=== PATIENT | male | born 1990 | race Hispanic/Latino ===

== ENCOUNTER 2017-11-03 00:20 | Inpatient (IN) | payer MEDICAID ==
[2017-11-03] MEDS ORDERED: Albuterol-Ipratrop 3 mg / 0.5 (3 ml) UD IH STA ×2 (00:36)
--- NOTE | 2017-11-03 00:42 | ED PDOC ---
Arrival/HPI - General Chief Complaint: Substance Abuse Time Seen by Provider: 11/03/17 00:21 Historian: Patient, EMS, Police - Critical Care Critical Care Minutes: 45 minutes - History of Present Illness Narrative History of Present Illness (Text): 11/03/17 00:35 A 27 year old male, whose past medical history includes PCP abuse, presents to the emergency department brought in by EMS and [facility] for overdose. According to EMS reports, patient was adminstered narcan prior to arrival. Upon arrival, Emergency department assesment found patient was hypoxic. Patient was awake and alert. Patient denies any fever, chills, chest pain, shortness of breath, nausea, vomiting, diarrhea, urinary symptoms, back pain, neck pain, headache, dizziness, or any other complaints. No PMD Time/Duration: Prior to Arrival Symptom Onset: Gradual Symptom Course: Unchanged Context: Home Past Medical History - Provider Review Nursing Documentation Reviewed: Yes - Infectious Disease Hx of Infectious Diseases: None - Tetanus Immunization Tetanus Immunization: Unknown - Past Medical History Past Medical History: No Previous - Psychiatric Hx Substance Use: Yes (pcp) - Past Surgical History Past Surgical History: No Previous - Anesthesia Hx Anesthesia: Yes - Suicidal Assessment Feels Threatened In Home Enviroment: No Family/Social History - Physician Review Nursing Documentation Reviewed: Yes Family/Social History: Unknown Family HX Smoking Status: Light Smoker < 10 Cigarettes Daily Hx Alcohol Use: Yes Hx Substance Use: Yes (pcp) Hx Substance Use Treatment: No Allergies/Home Meds Allergies/Adverse Reactions: Allergies No Known Allergies Allergy (Verified 11/03/17 00:23) Home Medications: Home Meds Medication Instructions Recorded Confirmed No Known Home Med 11/03/17 11/03/17 Review of Systems - Physician Review All systems were reviewed & negative as marked: Yes - Review of Systems Constitutional: absent: Fevers, Night Sweats Eyes: Other (+has difficulty seeing ) ENT: Normal Respiratory: absent: SOB Cardiovascular: Normal. absent: Chest Pain Gastrointestinal: absent: Diarrhea, Nausea, Vomiting Genitourinary Male: absent: Urinary Output Changes Musculoskeletal: absent: Back Pain, Neck Pain Skin: Normal Neurological: absent: Headache, Dizziness Physical Exam Vital Signs Temp Pulse Resp BP Pulse Ox 11/03/17 03:44 97 H 20 120/82 100 11/03/17 03:02 83 11/03/17 02:43 84 22 117/80 100 08/04/18 02:20 78 22 124/100 H 100 11/03/17 00:30 97.7 F 89 24 115/70 94 L 11/03/17 00:29 97.7 F 94 H 22 115/70 92 L Temperature: Afebrile Blood Pressure: Hypertensive Pulse: Regular Respiratory Rate: Normal Appearance: Positive for: Well-Appearing, Non-Toxic, Comfortable Pain Distress: None Mental Status: Positive for: Alert and Oriented X 3 - Systems Exam Head: Present: Atraumatic, Normocephalic Pupils: Present: PERRL Extroacular Muscles: Present: EOMI Conjunctiva: Present: Normal Mouth: Present: Moist Mucous Membranes Neck: Present: Normal Range of Motion Respiratory/Chest: Present: Respiratory Distress (coarse bilateral breath sounds ), Other. No: Clear to Auscultation, Good Air Exchange, Accessory Muscle Use Cardiovascular: Present: Regular Rate and Rhythm, Normal S1, S2. No: Murmurs Abdomen: No: Tenderness, Distention, Peritoneal Signs Back: Present: Normal Inspection Upper Extremity: Present: Normal Inspection. No: Cyanosis, Edema Lower Extremity: Present: Normal Inspection. No: Edema Neurological: Present: GCS=15, CN II-XII Intact, Speech Normal Skin: Present: Warm, Dry, Normal Color. No: Rashes Psychiatric: Present: Alert, Oriented x 3, Normal Insight, Normal Concentration Medical Decision Making ED Course and Treatment: 11/03/17 00:40 Impression: A 27 year old male presenting to the Emergency department brought in by EMS and [facility] for overdose. Plan: -- Venous Blood Gas -- Head Ct w/o contrast -- EKG -- Labs -- Chest X-ray -- Duoneb -- Urinalysis -- Reassess and disposition Prior Visits: Notes and results from previous visits were reviewed. Patient was last seen in the emergency department on 09/27/15 for combative behavior and admitted PCP use. He was charged when his condition stabled. Progress Notes: 11/03/17 01:14 EKG: Ordered, reviewed, and independently interpreted the EKG. Rate : 91 BPM Rhythm : NSR Interpretation : No ST-segment elevations or depressions, no T-wave inversions, normal intervals. Comparison : No previous EKG for comparison. Interpreted by me. 11/03/17 01:[address] w/o contrast FINDINGS: Brain: No evidence of acute intracranial bleed. No mass lesion or mass effect. Osborn/white matter differentiation is unremarkable. Cerebellum is unremarkable. Cisterns are unremarkable. Brainstem is unremarkable. No suprasellar mass. Ventricles: Unremarkable. No ventriculomegaly. Bones/joints: Unremarkable. No acute fracture. Soft tissues: Unremarkable. Sinuses: Fluid level seen in dependent portion of left maxillary sinus. Mastoid air cells: Unremarkable as visualized. No mastoid effusion. IMPRESSION: Fluid level seen in dependent portion of left maxillary sinus. Finding is consistent with acute Dictated and Authenticated by: Aaron Douglas MD 11/03/17 01:35 Chest XRay - CHEST TWO VIEWS (PA/LAT) FINDINGS: Lungs: Coarse bilateral perihilar infiltrates. Pleural space: Normal. No pneumothorax. Heart/Mediastinum: Normal. No cardiomegaly. Bones/joints: Unremarkable for age. IMPRESSION: Coarse bilateral perihilar infiltrates, new since 11/24/2016 which may reflect pneumonia. Pulmonary Dictated and Authenticated by: Gregory Singh MD 11/03/17 01:56 Case discussed with medical pathology teacher who is aware and agrees with Emergency department management plan to admit patient for further observation. 11/03/17 02:[address] Linh Brown who is aware and agrees with Emergency department management plan to admit patient for further observation. 11/03/17 03:15 Dr. Granados has decided to transfer patient to the ICU. 11/03/17 05:40 noted LA, no sirs critera, no code sepsis. subsequent la neg. - Lab Interpretations Lab Results: 11/03/17 00:45 11/03/17 00:45 Lab Results 11/03/17 00:45: Alcohol, Quantitative < 10 11/03/17 00:45: Salicylates < 1 L, Acetaminophen < 10.0 L 11/03/17 00:45: Sodium 139, Chloride 98, Potassium 4.2, Carbon Dioxide 25, Anion Gap 21 H, BUN 23 H, Creatinine 1.5, Est GFR ( Amer) > 60, Est GFR ( Non-Af Amer) 56, Random Glucose 263 H, Calcium 8.9, Magnesium 2.3 H, Total Bilirubin 1.3, AST 31, ALT 27, Alkaline Phosphatase 70, Lactate Dehydrogenase 387, Total Creatine Kinase 289 H, CK-MB (CK-2) 1.2, CK-MB (CK-2) % Cancelled, Troponin I < 0.01, NT-Pro-B Natriuret Pep 13.8, Total Protein 7.4, Albumin 4.3, Globulin 3.1, Albumin/Globulin Ratio 1.4 11/03/17 00:45: PT 11.3, INR 0.99, APTT 22.6 L 11/03/17 00:45: WBC 8.3 D, RBC 4.60, Hgb 13.2 L, Hct 40.7 L, MCV 88.5, MCH 28.7 , MCHC 32.4, RDW 14.8 H, Plt Count 217, MPV 10.4, Gran % 76.3 H, Lymph % (Auto) 19.8 L, [place] % (Auto) 3.0, Eos % (Auto) 0.8 L, Baso % (Auto) 0.1, Gran # 6.35, Lymph # (Auto) 1.7, [place] # (Auto) 0.3, Eos # (Auto) 0.1, Baso # (Auto) 0.01 11/03/17 00:45: pO2 35, VBG pH 7.18 L*, VBG pCO2 69.0 H*, VBG HCO3 25.8, VBG Total CO2 27.9, VBG O2 Sat (Calc) 62.7, VBG Base Excess -4.0 L, VBG Potassium 4.1, Sodium 137.0, Chloride 99.0, Glucose 275 H, Lactate 4.0 H*, FiO2 21.0, Venous Blood Potassium 4.1 - RAD Interpretation Radiology Orders: 11/03/17 00:35 CHEST PORTABLE [RAD] Stat 11/03/17 00:36 HEAD W/O CONTRAST [CT] Stat - Medication Orders Current Medication Orders: Acetaminophen (Tylenol 325mg Tab) 650 mg PO Q6H PRN PRN Reason: Fever >100.4 F Last Admin: 11/03/17 12:44 Dose: 650 mg Albuterol/Ipratropium (Duoneb 3 Mg/0.5 Mg (3 Ml) Ud) 3 ml IH Q2H PRN PRN Reason: Shortness of Breath Enoxaparin Sodium (Lovenox) 40 mg SC DAILY NBA PRN Reason: Protocol Last Admin: 11/03/17 10:06 Dose: 40 mg Subcutaneous Administrations Document 11/03/17 10:06 RM (Rec: 11/03/17 10:06 [facility]-ELECTROLOG OPERATOR) Charges for Administration # of Subcutaneous Administrations 1 Folic Acid (Folic Acid) 1 mg PO DAILY [facility] Last Admin: 11/03/17 10:05 Dose: 1 mg Furosemide (Lasix) 40 mg IVP DAILY [facility] Last Admin: 11/03/17 10:05 Dose: 40 mg MAR Blood Pressure Document 11/03/17 10:05 RM (Rec: 11/03/17 10:06 [facility]-ELECTROLOG OPERATOR) Blood Pressure Blood Pressure (100/60-150/90) 131/61 IVP Administration Document 11/03/17 10:05 RM (Rec: 11/03/17 10:06 [facility]-ELECTROLOG OPERATOR) Charges for Administration # of IVP Administrations 1 Guaifenesin (Mucinex La) 600 mg PO BID [facility] Last Admin: 11/03/17 17:25 Dose: 600 mg Metronidazole (Flagyl) 500 mg in 100 mls @ 100 mls/hr IVPB Q8 [facility] PRN Reason: Protocol Last Admin: 11/03/17 14:24 Dose: 100 mls/hr eMAR Start Stop Document 11/03/17 14:24 BK (Rec: 11/03/17 14:24 BK [id number]) Intravenous Solution Start Date 11/03/17 Start Time 14:24 End Date 11/03/17 End time 15:24 Total Infusion Time 60 Ceftriaxone Sodium (Rocephin 1 Gram Ivpb) 1 gm in 100 mls @ 100 mls/hr IVPB DAILY [facility] PRN Reason: Protocol Azithromycin (Zithromax 500mg In Ns) 500 mg in 250 mls @ 167 mls/hr IVPB DAILY [facility] PRN Reason: Protocol Sodium Chloride (Sodium Chloride 0.9%) 1,000 mls @ 60 mls/hr IV .[id number] [facility] Last Admin: 11/03/17 10:08 Dose: 60 mls/hr eMAR Start Stop Document 11/03/17 10:08 RM (Rec: 11/03/17 10:08 RM [facility]-ELECTROLOG OPERATOR) Intravenous Solution Start Date 11/03/17 Start Time 10:08 Pantoprazole Sodium (Protonix Inj) 40 mg IVP Q12 [facility] Last Admin: 11/03/17 10:05 Dose: 40 mg IVP Administration Document 11/03/17 10:05 RM (Rec: 11/03/17 10:05 [facility]-ELECTROLOG OPERATOR) Charges for Administration # of IVP Administrations 1 Thiamine HCl (Vitamin B1 Tab) 100 mg PO DAILY [facility] Last Admin: 11/03/17 10:04 Dose: 100 mg Discontinued Medications Albuterol/Ipratropium (Duoneb 3 Mg/0.5 Mg (3 Ml) Ud) 3 ml IH STAT STA Stop: 11/03/17 00:37 Last Admin: 11/03/17 00:55 Dose: 3 ml Albuterol/Ipratropium (Duoneb 3 Mg/0.5 Mg (3 Ml) Ud) 3 ml IH STAT STA Stop: 11/03/17 00:37 Last Admin: 11/03/17 00:55 Dose: 3 ml Albuterol/Ipratropium (Duoneb 3 Mg/0.5 Mg (3 Ml) Ud) 3 ml IH [id number] [facility] Last Admin: 11/03/17 04:30 Dose: 3 ml Sodium Chloride (Sodium Chloride 0.9%) 500 mls @ 999 mls/hr IV .Q31M STA Stop: 11/03/17 01:34 Last Admin: 11/03/17 01:20 Dose: 999 mls/hr eMAR Start Stop Document 11/03/17 01:20 AD (Rec: 11/03/17 01:50 AD [id number]) Intravenous Solution Start Date 11/03/17 Start Time 01:50 Sodium Chloride (Sodium Chloride 0.9%) 1,000 mls @ 999 mls/hr IV .Q1H1M STA Stop: 11/03/17 02:29 Last Admin: 11/03/17 02:06 Dose: 999 mls/hr eMAR Start Stop Document 11/03/17 02:06 AD (Rec: 11/03/17 02:06 AD [id number]) Intravenous Solution Start Date 11/03/17 Start Time 02:06 Metronidazole (Flagyl) 500 mg in 100 mls @ 100 mls/hr IVPB STAT STA PRN Reason: Protocol Stop: 11/03/17 02:28 Last Admin: 11/03/17 02:46 Dose: 100 mls/hr eMAR Start Stop Document 11/03/17 02:46 AD (Rec: 11/03/17 02:46 AD [id number]) Intravenous Solution Start Date 11/03/17 Start Time 02:46 Ceftriaxone Sodium (Rocephin 1 Gram Ivpb) 1 gm in 100 mls @ 100 mls/hr IVPB STAT STA PRN Reason: Protocol Stop: 11/03/17 02:28 Last Admin: 11/03/17 01:50 Dose: 100 mls/hr eMAR Start Stop Document 11/03/17 01:50 AD (Rec: 11/03/17 01:50 AD [id number]) Intravenous Solution Start Date 11/03/17 Start Time 01:50 Azithromycin (Zithromax 500mg In Ns) 500 mg in 250 mls @ 167 mls/hr IVPB STAT STA PRN Reason: Protocol Stop: 11/03/17 02:59 Last Admin: 11/03/17 04:39 Dose: 167 mls/hr eMAR Start Stop Document 11/03/17 04:39 NITA (Rec: 11/03/17 04:40 NITA [id number]) Intravenous Solution Start Date 11/03/17 Start Time 04:39 End Date 11/03/17 End time 05:45 Total Infusion Time 66 - Scribe Statement The provider has reviewed the documentation as recorded by the Tashi Brown All medical record entries made by the Tashi were at my direction and personally dictated by me. I have reviewed the chart and agree that the record accurately reflects my personal performance of the history, physical exam, medical decision making, and the department course for this patient. I have also personally directed, reviewed, and agree with the discharge instructions and disposition. Disposition/Present on Arrival - Present on Arrival Any Indicators Present on Arrival: No History of DVT/PE: No History of Uncontrolled Diabetes: No Urinary Catheter: No History of Decub. Ulcer: No History Surgical Site Infection Following: None - Disposition Have Diagnosis and Disposition been Completed?: Yes Diagnosis: Pneumonia, Overdose Disposition: HOSPITALIZED Disposition Time: 06:00 Condition: CRITICAL
[2017-11-03 00:56] LABS: VENOUS BLOOD GAS PO2 35 mm/Hg (30-55); VENOUS BLOOD PH 7.18 (7.32-7.43)
[2017-11-03 01:04] LABS: INR 0.99; PROTHROMBIN TIME 11.3 SECONDS (9.4-12.5)
[2017-11-03] MEDS ORDERED: Sodium Chloride 0.9% 500 ML IV STA (01:04)
[2017-11-03 01:05] LABS: BASO # 0.01 K/mm3 (0.0-2.0); BASO % 0.1 % (0.0-3.0); EOS # 0.1 (0.0-0.7); EOS % 0.8 % (1.5-5.0); GRAN # 6.35 (1.4-6.5); GRAN % 76.3 % (50.0-68.0); HEMOGLOBIN 13.2 g/dL (14.0-18.0); LYMPH # 1.7 (1.2-3.4); LYMPH % 19.8 % (22.0-35.0); MEAN CELL VOLUME 88.5 fl (80.0-105.0); MEAN CORPUSCULAR HEMOGLOBIN 28.7 pg (25.0-35.0); MEAN CORPUSCULAR HGB CONC 32.4 g/dl (31.0-37.0); MEAN PLATELET VOLUME 10.4 fl (7.0-11.0); MONO # 0.3 (0.1-0.6); RBC 4.6 10^6/uL (3.5-6.1); RED CELL DISTRIBUTION WIDTH 14.8 % (11.5-14.5); WHITE BLOOD COUNT 8.3 10^3/ul (4.5-11.0)
[2017-11-03 01:07] LABS: ACETAMINOPHEN < 10.0 ug/ml (10.0-20.0); PARTIAL THROMBOPLASTIN TIME 22.6 Seconds (25.1-36.5); SALICYLATE < 1 mg/dL (2.0-20.0)
[2017-11-03 01:08] LABS: ALB/GLOB RATIO 1.4 (1.1-1.8); ALBUMIN 4.3 g/dL (3.0-4.8); ALT/SGPT 27 U/L (7-56); AST/SGOT 31 U/L (17-59); BLOOD UREA NITROGEN 23 mg/dL (7-21); CALCIUM 8.9 mg/dL (8.4-10.5); GFR AFRICAN-AMERICAN > 60; GFR NON-AFRICAN AMERICAN 56
[2017-11-03 01:26] LABS: B-TYPE NATRIURETIC PEPTIDE 13.8 pg/mL (0-450); TROPONIN I < 0.01 ng/mL
[2017-11-03 01:29] LABS: CK-MB 1.2 ng/mL (0.0-3.6)
[2017-11-03] MEDS ORDERED: metroNIDAZOLE IV 500 mg/100 ml 500 MG/100 ML BAG IVPB STA (01:29)
[2017-11-03] MEDS ORDERED: cefTRIAXone 1 gm 1 GM/100 ML BAG IVPB STA (01:29)
[2017-11-03] MEDS ORDERED: Sodium Chloride 0.9% 1,000 ML IV STA (01:29)
[2017-11-03] MEDS ORDERED: Azithromycin 500MG/NS 250ml 500 MG/250 ML BAG IVPB STA (01:30)
[2017-11-03 02:33] LABS: ARTERIAL BLOOD GAS HCO3 25.1 mmol/L (21-28); ARTERIAL BLOOD GAS O2 SAT 98.4 % (95-98); ARTERIAL BLOOD GAS PCO2 51 mm/Hg (35-45); ARTERIAL BLOOD GAS TCO2 26.7 mmol.L (22-28)
[2017-11-03] MEDS ORDERED: Albuterol-Ipratrop 3 mg / 0.5 (3 ml) UD IH PRN (03:09)
[2017-11-03] MEDS ORDERED: Albuterol-Ipratrop 3 mg / 0.5 (3 ml) UD IH SCH (03:30)
--- NOTE | 2017-11-03 03:47 | CP.PCM.CON ---
History of Present Illness - History of Present Illness History of Present Illness: ICU CONSULT NOTE Eliu Rao PGY1 CC: unknown substance overdose, hypoxic respiratory failure HPI: 27 y/o M w pmhx of several PCP overdoses, substance abuse, brought in by EMT after being found by his friend not breathing. He was found at his house, where the pt was on his knees with his neck extended and apneic. Friend is present in ED during interview. Friend reports he had "put his fingers down" pt' s throat which subsequently resulted in the pt vomiting. Friend called EMS, and was administered narcan as per EMS documentation. Pt is unable to converse as he is SOB without bipap, but nods yes/no to questions. He does not recall what drug he overdosed on, or any of the events that transpired since he was at his house. Pt denies fever, chills, headache, dizziness, chest pain, SOB, nausea, vomiting. Pmhx: denies Socialhx: PCP abuse, heroin abuse, alcohol use Surghx: denies Allergies: NKDA Meds: denies PMD: None Initial VB.18/69/35/25 ABG on BiPAP: 7.30/51/94 BiPAP settings: IPAP: 12, I time: 0.90, RR: 14, EPAP:6, Rise:3, Fi02:100% Past Patient History - Infectious Disease Hx of Infectious Diseases: None - Tetanus Immunizations Tetanus Immunization: Unknown - Past Social History Smoking Status: Light Smoker < 10 Cigarettes Daily - PSYCHIATRIC Hx Substance Use: Yes (pcp) - ANESTHESIA Hx Anesthesia: Yes Meds Allergies/Adverse Reactions: Allergies Allergy/AdvReac Type Severity Reaction Status Date / Time No Known Allergies Allergy Verified 11/03/17 00:23 - Medications Medications: Current Medications Albuterol/Ipratropium (Duoneb 3 Mg/0.5 Mg (3 Ml) Ud) 3 ml IH [id number] NBA Albuterol/Ipratropium (Duoneb 3 Mg/0.5 Mg (3 Ml) Ud) 3 ml IH Q2H PRN PRN Reason: Shortness of Breath Furosemide (Lasix) 40 mg IVP DAILY [facility] Heparin Sodium (Porcine) (Heparin) 5,000 units SC Q12 NBA PRN Reason: Protocol Pantoprazole Sodium (Protonix Inj) 40 mg IVP Q12 NBA Thiamine HCl (Vitamin B1 Inj) 100 mg IM DAILY NBA Results - Vital Signs Recent Vital Signs: Last Vital Signs Temp 97.7 F 11/03/17 00:30 Pulse 97 H 11/03/17 03:44 Resp 20 11/03/17 03:44 BP 120/82 11/03/17 03:44 Pulse Ox 100 11/03/17 03:44 - Labs Result Diagrams: 11/03/17 00:45 11/03/17 00:45 Labs: Laboratory Results - last 24 hr 11/03/17 02:20 pCO2 51 H pO2 94.0 HCO3 25.1 ABG pH 7.30 L ABG Total CO2 26.7 ABG O2 Saturation 98.4 H ABG Base Excess -2.0 ABG Potassium 3.7 Sodium 136.0 Chloride 104.0 Glucose 156 H Lactate 1.1 FiO2 100.0 Arterial Blood Potassium 3.7
--- NOTE | 2017-11-03 04:38 | CP.PCM.HP ---
<JalenEliu - Last Filed: 11/03/17 06:45> History of Present Illness - History of Present Illness History of Present Illness: Eliu Rao D.O. PGY-1, HISTORY & PHYSICAL NOTE FOR HOSPITALIST TEAM CC: unknown substance overdose, hypoxic respiratory failure 27 y/o M w pmhx of several PCP overdoses, substance abuse, brought in by EMT after being found by his friend not breathing. He was found at his house, where the pt was on his knees with his neck extended and apneic. Friend is present in ED during interview. Friend reports he had "put his fingers down" pt's throat which subsequently resulted in the pt vomiting. Friend called EMS, and was administered narcan as per EMS documentation. Pt is unable to converse as he is SOB without bipap, but nods yes/no to questions and is alert. He does not recall which substance he took, or any of the events that transpired since he was at his house. Pt denies fever, chills, headache, dizziness, chest pain, SOB , nausea, vomiting, dysuria. PMD: None PMH: denies SH: PCP abuse, heroin abuse, alcohol use SH: denies Allergies: NKDA Meds: denies Present on Admission - Present on Admission Any Indicators Present on Admission: No Review of Systems - Review of Systems All systems: reviewed and no additional remarkable complaints except (as per HPI ) Past Patient History - Infectious Disease Hx of Infectious Diseases: None - Tetanus Immunizations Tetanus Immunization: Unknown - Past Social History Smoking Status: Light Smoker < 10 Cigarettes Daily Drugs: Opiates (heroin), Other (PCP) - CARDIAC Hx Cardiac Disorders: No - PULMONARY Hx Respiratory Disorders: No - NEUROLOGICAL Hx Neurological Disorder: No - PSYCHIATRIC Hx Substance Use: Yes (pcp) - ANESTHESIA Hx Anesthesia: Yes Meds Allergies/Adverse Reactions: Allergies Allergy/AdvReac Type Severity Reaction Status Date / Time No Known Allergies Allergy Verified 11/03/17 00:23 Physical Exam - Constitutional Appears: No Acute Distress, Unkempt (emesis on pants) - Head Exam Head Exam: NORMAL INSPECTION - Eye Exam Eye Exam: Normal appearance - ENT Exam ENT Exam: Mucous Membranes Moist - Neck Exam Neck exam: Positive for: Normal Inspection. Negative for: Tenderness - Respiratory Exam Respiratory Exam: Respiratory Distress. absent: Accessory Muscle Use (course breath sounds), Clear to Auscultation Bilateral - Cardiovascular Exam Cardiovascular Exam: REGULAR RHYTHM, +S1, +S2 - GI/Abdominal Exam GI & Abdominal Exam: Normal Bowel Sounds, Soft. absent: Distended, Tenderness - Extremities Exam Extremities exam: Negative for: calf tenderness, joint swelling - Neurological Exam Neurological exam: Alert, CN II-XII Intact - Psychiatric Exam Psychiatric exam: Normal Affect, Normal Mood - Skin Skin Exam: Dry, Warm Results - Vital Signs Recent Vital Signs: Last Vital Signs Temp 97.7 F 11/03/17 00:30 Pulse 97 H 11/03/17 03:44 Resp 20 11/03/17 03:44 BP 120/82 11/03/17 03:44 Pulse Ox 100 11/03/17 03:44 - Labs Result Diagrams: 11/03/17 05:30 11/03/17 05:30 Labs: Laboratory Results - last 24 hr 11/03/17 02:20 pCO2 51 H pO2 94.0 HCO3 25.1 ABG pH 7.30 L ABG Total CO2 26.7 ABG O2 Saturation 98.4 H ABG Base Excess -2.0 ABG Potassium 3.7 Sodium 136.0 Chloride 104.0 Glucose 156 H Lactate 1.1 FiO2 100.0 Arterial Blood Potassium 3.7 Assessment & Plan - Assessment and Plan (Free Text) Assessment: 27 y/o M with pmhx of multiple ED visits for PCP overdose, admitted for hypoxic respiratory failure likely secondary to drug overdose. Pt was found apneic at home by his friend, who subsequently forced pt to vomit by placing finger in pts throat. EMS had administered narcan. Initial VBG showed 7.18/69/35. Pt was placed on BiPAP, which showed improvement in ABG. Pt transferred to ICU for management of hypoxia with b/l pulmonary infiltrates vs drug induced pulmonary edema Plan: 1. Hypoxic respiratory failure Likely 2/2 aspiration vs drug induced pulmonary edema Chest X-ray 11/03 showed coarse bilateral perihilar infiltrates, new since 2016 which may reflect pneumonia. Pulmonary edema is not excluded. Pt placed on BiPAP in ED @ 12/6/100% with improvement of symptoms Initial VB.18/69/35/25, ABG on BiPAP: 7.30/51/94, will continue at aforementioned settings Repeat ABG for 5am Started Duoneb 3mL IH q4hr. 3mL IH Q2 prn SOB Monitor O2Sat Monitor mental status NPO 2. Bilateral pulmonary infiltrates Likely 2/2 Pneumonia vs Pneumonitis vs non-cardiogenic pulmonary edema Seen on CXR Empiric antibiotics for aspiration/community acquired pneumonia However, afebrile, no tachycardia, no leukocytosis, no hypotension Started on Metronidazole, Ceftriaxone, Azithromycin Further recs per ID Started Furosemide 40mg IVP QD Echo in am F/u procalcitonin F/u blood/urine cultures 3. Substance use disorder F/u urine drug screen Started Thiamine and folic acid Will advise cessation once off bipap GI/DVT ppx: protonix/lovenox Case discussed with and reviewed by attending physician, Dr. Brown - Date & Time Date: 11/03/17 Time: 04:00 <Linh Brown - Last Filed: 11/04/17 06:15> Results - Vital Signs Recent Vital Signs: Last Vital Signs Temp 99.0 F 11/03/17 23:51 Pulse 99 H 11/04/17 02:00 Resp 20 11/03/17 23:51 BP 113/58 L 11/03/17 23:51 Pulse Ox 93 L 11/03/17 10:50 - Labs Result Diagrams: 11/03/17 05:30 11/03/17 05:30 Labs: Laboratory Results - last 24 hr 11/03/17 11/03/17 11/03/17 04:15 04:15 05:30 Sodium Potassium Chloride Carbon Dioxide Anion Gap BUN Creatinine Est GFR ( Amer) Est GFR (Non-Af Amer) Random Glucose Calcium Phosphorus Magnesium Total Bilirubin AST ALT Alkaline Phosphatase Troponin I Total Protein Albumin Globulin Albumin/Globulin Ratio Procalcitonin 1.37 H Urine RBC 0 - 2 Urine WBC 1 - 3 Ur Epithelial Cells 0 - 2 Urine Bacteria Occ HIV 1&2 Antibody Screen Ur L.pneumophila Ag Negative 11/03/17 11/03/17 11/03/17 05:30 13:15 Unknown Sodium 139 Potassium 4.2 Chloride 105 Carbon Dioxide 23 Anion Gap 16 BUN 22 H Creatinine 1.0 Est GFR ( Amer) > 60 Est GFR (Non-Af Amer) > 60 Random Glucose 144 H Calcium 8.5 Phosphorus 3.1 Magnesium 1.8 Total Bilirubin 1.6 H AST 24 ALT 30 Alkaline Phosphatase 58 Troponin I < 0.01 Total Protein 6.7 Albumin 3.7 Globulin 3.0 Albumin/Globulin Ratio 1.2 Procalcitonin Urine RBC Urine WBC Ur Epithelial Cells Urine Bacteria HIV 1&2 Antibody Screen Negative Ur L.pneumophila Ag
[2017-11-03 05:00] LABS: URINE BILIRUBIN NEGATIVE (NEGATIVE); URINE BLOOD TRACE-INTACT (NEGATIVE); URINE GLUCOSE (UA) 500 mg/dL (NEGATIVE); URINE LEUKOCYTE ESTERASE NEGATIVE Leu/uL (NEGATIVE); URINE PROTEIN 30 mg/dL (<30 mg/dL); URINE UROBILINOGEN 0.2 E.U./dL (<1 E.U./dL)
[2017-11-03 05:03] LABS: URINE APPEARANCE SL CLOUDY (CLEAR); URINE COLOR YELLOW (YELLOW)
[2017-11-03 05:15] VITALS: BMI 30.1
[2017-11-03 05:40] LABS: ARTERIAL BLOOD GAS HCO3 22.2 mmol/L (21-28); ARTERIAL BLOOD GAS O2 SAT 99.7 % (95-98); ARTERIAL BLOOD GAS PCO2 44 mm/Hg (35-45); ARTERIAL BLOOD GAS PH 7.31 (7.35-7.45); ARTERIAL BLOOD GAS TCO2 23.6 mmol.L (22-28)
[2017-11-03 05:48] LABS: BARBITURATES, UR NEGATIVE (NEGATIVE); BENZODIAZEPINES, UR NEGATIVE (NEGATIVE); OPIATES, UR POSITIVE (NEGATIVE); PHENCYCLIDINE, UR NEGATIVE (NEGATIVE)
[2017-11-03 05:49] LABS: VENOUS BLOOD GAS BASE EXCESS -3.2 mmol/L (0.0-2.0); VENOUS BLOOD GAS PO2 75 mm/Hg (30-55)
[2017-11-03 05:58] LABS: GRAN # 3.28 (1.4-6.5); GRAN % 83.7 % (50.0-68.0); HEMOGLOBIN 14.5 g/dL (14.0-18.0); LYMPH # 0.3 (1.2-3.4); LYMPH % 7.1 % (22.0-35.0); MEAN CELL VOLUME 87.5 fl (80.0-105.0); MEAN CORPUSCULAR HEMOGLOBIN 28.3 pg (25.0-35.0); MEAN CORPUSCULAR HGB CONC 32.4 g/dl (31.0-37.0); MEAN PLATELET VOLUME 10.5 fl (7.0-11.0); MONO # 0.4 (0.1-0.6); MONO % 9.2 % (1.0-6.0); RBC 5.12 10^6/uL (3.5-6.1); RED CELL DISTRIBUTION WIDTH 14.7 % (11.5-14.5); WHITE BLOOD COUNT 3.9 10^3/ul (4.5-11.0)
[2017-11-03 06:15] LABS: ALB/GLOB RATIO 1.2 (1.1-1.8); ALBUMIN 3.7 g/dL (3.0-4.8); ALT/SGPT 30 U/L (7-56); AST/SGOT 24 U/L (17-59); BLOOD UREA NITROGEN 22 mg/dL (7-21); CALCIUM 8.5 mg/dL (8.4-10.5); GFR AFRICAN-AMERICAN > 60; GFR NON-AFRICAN AMERICAN > 60
[2017-11-03 06:16] LABS: URINE RBC 0 - 2 /hpf (0-2)
[2017-11-03 06:17] LABS: URINE BACTERIA OCC (NEG); URINE EPITHELIAL CELLS 0 - 2 /hpf (0-5)
--- NOTE | 2017-11-03 08:08 | RAD ---
Date of service: 11/03/2017 HISTORY: sob COMPARISON: 11/24/2016 FINDINGS: LUNGS: Bilateral perihilar infiltrates, CHF versus pneumonia PLEURA: No significant pleural effusion identified, no pneumothorax apparent. CARDIOVASCULAR: Normal. OSSEOUS STRUCTURES: No significant abnormalities. VISUALIZED UPPER ABDOMEN: Normal. OTHER FINDINGS: The report concurs with the preliminary [facility] report IMPRESSION: Bilateral perihilar infiltrates, CHF versus pneumonia
--- NOTE | 2017-11-03 08:40 | CT ---
Date of service: 11/03/2017 PROCEDURE: CT HEAD WITHOUT CONTRAST. HISTORY: ams COMPARISON: None available. TECHNIQUE: Axial computed tomography images were obtained through the head/brain without intravenous contrast. Radiation dose: Total exam DLP = 906 mGy-cm. This CT exam was performed using one or more of the following dose reduction techniques: Automated exposure control, adjustment of the mA and/or kV according to patient size, and/or use of iterative reconstruction technique. FINDINGS: HEMORRHAGE: No intracranial hemorrhage. BRAIN: No mass effect or edema. No atrophy or chronic microvascular ischemic changes. VENTRICLES: Unremarkable. No hydrocephalus. CALVARIUM: Unremarkable. PARANASAL SINUSES: There is a fluid level in the left maxillary sinus and left frontal sinus consistent with sinusitis MASTOID AIR CELLS: Unremarkable as visualized. No inflammatory changes. OTHER FINDINGS: The report concurs with the preliminary [facility] report IMPRESSION: No acute intracranial findings There is a fluid level in the left maxillary sinus and left frontal sinus consistent with sinusitis
--- NOTE | 2017-11-03 09:06 | CARD ---
APPROVED REPORT Date of service: 11/03/2017 EKG Measurement Heart [id number] <Conclusion> Normal sinus rhythm Normal ECG
[2017-11-03] MEDS ORDERED: Thiamine 100 mg/ml Inj IM SCH (10:00)
[2017-11-03] MEDS: Enoxaparin 40 mg Syringe SC SCH (10:06)
[2017-11-03] MEDS: metroNIDAZOLE IV 500 mg/100 ml 500 MG/100 ML BAG IVPB SCH ×3 (10:07→21:37)
[2017-11-03] MEDS: Sodium Chloride 0.9% 1,000 ML IV SCH ×2 (10:08→22:09)
--- NOTE | 2017-11-03 11:42 | CT ---
Date of service: 11/03/2017 PROCEDURE: CT Chest without contrast HISTORY: bilateral pulm infiltrates COMPARISON: None available. TECHNIQUE: Contiguous axial images were obtained through the chest without intravenous contrast enhancement. Sagittal and coronal reconstructions were performed. Radiation dose (DLP): 599 mGy-cm. This CT exam was performed using one or more of the following dose reduction techniques: Automated exposure control, adjustment of the mA and/or kV according to patient size, and/or use of iterative reconstruction technique. FINDINGS: LUNGS: Extensive bilateral patchy infiltrates are seen as well as more dense consolidation in the posterior lower lobes. Findings are consistent with multi focal pneumonia MEDIASTINUM: Unremarkable thoracic aorta. No aneurysm. Normal sized heart. Main pulmonary artery unremarkable. No vascular congestion. No lymphadenopathy. PLEURA: Small pleural effusions are seen BONES: No fracture. No destructive lesion. UPPER ABDOMEN: Grossly unremarkable. OTHER FINDINGS: None. IMPRESSION: Extensive bilateral patchy infiltrates are seen as well as more dense consolidation in the posterior lower lobes. Findings are consistent with multi focal pneumonia
--- NOTE | 2017-11-03 11:50 | CP.PCM.CON ---
<SumayaMichael - Last Filed: 11/03/17 11:32> History of Present Illness - History of Present Illness History of Present Illness: ICU consult note: Sumaya PGY - 2, IM Resident Reason for consult: Heroin OD 27 y/o M w pertinent history of PCP overdoses, substance abuse, brought in by EMT after being found by his friend not breathing. According to overnight physician, patient was found on his knees at home and apneic; Narcan was given, patient was then able to nod yes/no to questions and was alert, but was still unable to converse at the time. Patient was placed on Bipap and oxygenation improved. On interview, patient is completely awake alert and oriented, and states that he snorted heroin and overdosed. Patient denies IV drug use. At this time, patient denies chest pain, shortness of breath, fevers, chills, or symptoms of withdrawal. Review of Systems: 12 point ROS obtained and negative except as per HPI PMD: None Surgical Hx: Denies Medical Hx: Denies Allergies: NKDA Social Hx: PCP abuse, heroin abuse, alcohol use Home Meds: Denies Family Hx: Denies Past Patient History - Infectious Disease Hx of Infectious Diseases: None - Tetanus Immunizations Tetanus Immunization: Unknown - Past Social History Smoking Status: Light Smoker < 10 Cigarettes Daily Drugs: Opiates (heroin), Other (PCP) - CARDIAC Hx Cardiac Disorders: No - PULMONARY Hx Respiratory Disorders: No - NEUROLOGICAL Hx Neurological Disorder: No - HEENT Hx HEENT Problems: No - RENAL Hx Chronic Kidney Disease: No - ENDOCRINE/METABOLIC Hx Endocrine Disorders: No - HEMATOLOGICAL/ONCOLOGICAL Hx Blood Disorders: No - INTEGUMENTARY Hx Dermatological Problems: No - MUSCULOSKELETAL/RHEUMATOLOGICAL Hx Musculoskeletal Disorders: No Hx Falls: No - GASTROINTESTINAL Hx Gastrointestinal Disorders: No - GENITOURINARY/GYNECOLOGICAL Hx Genitourinary Disorders: No - PSYCHIATRIC Hx Substance Use: Yes (pcp) - SURGICAL HISTORY Hx Surgeries: Yes Other/Comment: metal plate in left humerus - ANESTHESIA Hx Anesthesia: Yes Meds Allergies/Adverse Reactions: Allergies Allergy/AdvReac Type Severity Reaction Status Date / Time No Known Allergies Allergy Verified 11/03/17 00:23 - Medications Medications: Current Medications Albuterol/Ipratropium (Duoneb 3 Mg/0.5 Mg (3 Ml) Ud) 3 ml IH Q2H PRN PRN Reason: Shortness of Breath Enoxaparin Sodium (Lovenox) 40 mg SC DAILY [facility] PRN Reason: Protocol Last Admin: 11/03/17 10:06 Dose: 40 mg Folic Acid (Folic Acid) 1 mg PO DAILY [facility] Last Admin: 11/03/17 10:05 Dose: 1 mg Furosemide (Lasix) 40 mg IVP DAILY [facility] Last Admin: 11/03/17 10:05 Dose: 40 mg Guaifenesin (Mucinex La) 600 mg PO BID [facility] Metronidazole (Flagyl) 500 mg in 100 mls @ 100 mls/hr IVPB Q8 [facility] PRN Reason: Protocol Last Admin: 11/03/17 10:07 Dose: 100 mls/hr Ceftriaxone Sodium (Rocephin 1 Gram Ivpb) 1 gm in 100 mls @ 100 mls/hr IVPB DAILY [facility] PRN Reason: Protocol Azithromycin (Zithromax 500mg In Ns) 500 mg in 250 mls @ 167 mls/hr IVPB DAILY [facility] PRN Reason: Protocol Sodium Chloride (Sodium Chloride 0.9%) 1,000 mls @ 60 mls/hr IV .[id number] [facility] Last Admin: 11/03/17 10:08 Dose: 60 mls/hr Pantoprazole Sodium (Protonix Inj) 40 mg IVP Q12 [facility] Last Admin: 11/03/17 10:05 Dose: 40 mg Thiamine HCl (Vitamin B1 Tab) 100 mg PO DAILY [facility] Last Admin: 11/03/17 10:04 Dose: 100 mg Physical Exam - Constitutional Appears: Well - Head Exam Head Exam: ATRAUMATIC, NORMAL INSPECTION, NORMOCEPHALIC - Eye Exam Eye Exam: EOMI, Normal appearance, PERRL Pupil Exam: NORMAL ACCOMODATION, PERRL - ENT Exam ENT Exam: Mucous Membranes Moist, Normal Exam - Neck Exam Neck exam: Positive for: Normal Inspection - Respiratory Exam Respiratory Exam: Clear to Auscultation Bilateral, NORMAL BREATHING PATTERN - Cardiovascular Exam Cardiovascular Exam: REGULAR RHYTHM - GI/Abdominal Exam GI & Abdominal Exam: Normal Bowel Sounds, Soft. absent: Tenderness - Extremities Exam Extremities exam: Positive for: normal inspection - Back Exam Back exam: NORMAL INSPECTION - Neurological Exam Neurological exam: Alert, CN II-XII Intact, Normal Gait, Oriented x3, Reflexes Normal - Psychiatric Exam Psychiatric exam: Normal Affect, Normal Mood - Skin Skin Exam: Dry, Intact, Normal Color, Warm Results - Vital Signs Recent Vital Signs: Last Vital Signs Temp 98.6 F 11/03/17 04:32 Pulse 101 H 11/03/17 10:50 Resp 37 H 11/03/17 10:50 BP 131/61 11/03/17 10:05 Pulse Ox 93 L 11/03/17 10:50 - Labs Result Diagrams: 11/03/17 05:30 11/03/17 05:30 Labs: Laboratory Results - last 24 hr 11/03/17 11/03/17 11/03/17 02:20 04:15 04:15 WBC RBC Hgb Hct MCV MCH MCHC RDW Plt Count MPV Gran % Lymph % (Auto) [place] % (Auto) Eos % (Auto) Baso % (Auto) Gran # Lymph # (Auto) [place] # (Auto) Eos # (Auto) Baso # (Auto) pCO2 51 H pO2 94.0 HCO3 25.1 ABG pH 7.30 L ABG Total CO2 26.7 ABG O2 Saturation 98.4 H ABG Base Excess -2.0 ABG Potassium 3.7 VBG pH VBG pCO2 VBG HCO3 VBG Total CO2 VBG O2 Sat (Calc) VBG Base Excess VBG Potassium Sodium 136.0 Chloride 104.0 Glucose 156 H Lactate 1.1 FiO2 100.0 Potassium Carbon Dioxide Anion Gap BUN Creatinine Est GFR ( Amer) Est GFR (Non-Af Amer) Random Glucose Calcium Phosphorus Magnesium Total Bilirubin AST ALT Alkaline Phosphatase Total Protein Albumin Globulin Albumin/Globulin Ratio Arterial Blood Potassium 3.7 Venous Blood Potassium Urine Color Yellow Urine Appearance Sl cloudy Urine pH 6.0 Ur [address] [place] >= 1.030 Urine Protein 30 H Urine Glucose (UA) 500 H Urine Ketones Negative Urine Blood Trace-intact H Urine Nitrate Negative Urine Bilirubin Negative Urine Urobilinogen 0.2 Ur Leukocyte Esterase Negative Urine RBC 0 - 2 Urine WBC 1 - 3 Ur Epithelial Cells 0 - 2 Urine Bacteria Occ Urine Opiates Screen Positive H Urine Methadone Screen Negative Ur Barbiturates Screen Negative Ur Phencyclidine Scrn Negative Ur Amphetamines Screen Negative U Benzodiazepines Scrn Negative U Oth Cocaine Metabols Negative U Cannabinoids Screen Negative 11/03/17 11/03/17 11/03/17 05:02 05:30 05:30 WBC 3.9 L D RBC 5.12 Hgb 14.5 Hct 44.8 MCV 87.5 MCH 28.3 MCHC 32.4 RDW 14.7 H Plt Count 169 MPV 10.5 Gran % 83.7 H Lymph % (Auto) 7.1 L [place] % (Auto) 9.2 H Eos % (Auto) 0.0 L Baso % (Auto) 0.0 Gran # 3.28 Lymph # (Auto) 0.3 L [place] # (Auto) 0.4 Eos # (Auto) 0.0 Baso # (Auto) 0.00 pCO2 44 pO2 321.0 H HCO3 22.2 ABG pH 7.31 L ABG Total CO2 23.6 ABG O2 Saturation 99.7 H ABG Base Excess -4.1 L ABG Potassium 3.8 VBG pH VBG pCO2 VBG HCO3 VBG Total CO2 VBG O2 Sat (Calc) VBG Base Excess VBG Potassium Sodium 137.0 139 Chloride 109.0 H 105 Glucose 133 H Lactate 0.9 FiO2 100.0 Potassium 4.2 Carbon Dioxide 23 Anion Gap 16 BUN 22 H Creatinine 1.0 Est GFR ( Amer) > 60 Est GFR (Non-Af Amer) > 60 Random Glucose 144 H Calcium 8.5 Phosphorus 3.1 Magnesium 1.8 Total Bilirubin 1.6 H AST 24 ALT 30 Alkaline Phosphatase 58 Total Protein 6.7 Albumin 3.7 Globulin 3.0 Albumin/Globulin Ratio 1.2 Arterial Blood Potassium 3.8 Venous Blood Potassium Urine Color Urine Appearance Urine pH Ur Specific [place] Urine Protein Urine Glucose (UA) Urine Ketones Urine Blood Urine Nitrate Urine Bilirubin Urine Urobilinogen Ur Leukocyte Esterase Urine RBC Urine WBC Ur Epithelial Cells Urine Bacteria Urine Opiates Screen Urine Methadone Screen Ur Barbiturates Screen Ur Phencyclidine Scrn Ur Amphetamines Screen U Benzodiazepines Scrn U Oth Cocaine Metabols U Cannabinoids Screen 11/03/17 05:30 WBC RBC Hgb Hct MCV MCH MCHC RDW Plt Count MPV Gran % Lymph % (Auto) [place] % (Auto) Eos % (Auto) Baso % (Auto) Gran # Lymph # (Auto) [place] # (Auto) Eos # (Auto) Baso # (Auto) pCO2 pO2 75 H HCO3 ABG pH ABG Total CO2 ABG O2 Saturation ABG Base Excess ABG Potassium VBG pH 7.30 L VBG pCO2 48.0 VBG HCO3 23.6 VBG Total CO2 25.1 VBG O2 Sat (Calc) 96.5 H VBG Base Excess -3.2 L VBG Potassium 4.2 Sodium 137.0 Chloride 106.0 Glucose 142 H Lactate 1.4 FiO2 21.0 Potassium Carbon Dioxide Anion Gap BUN Creatinine Est GFR ( Amer) Est GFR (Non-Af Amer) Random Glucose Calcium Phosphorus Magnesium Total Bilirubin AST ALT Alkaline Phosphatase Total Protein Albumin Globulin Albumin/Globulin Ratio Arterial Blood Potassium Venous Blood Potassium 4.2 Urine Color Urine Appearance Urine pH Ur Specific [place] Urine Protein Urine Glucose (UA) Urine Ketones Urine Blood Urine Nitrate Urine Bilirubin Urine Urobilinogen Ur Leukocyte Esterase Urine RBC Urine WBC Ur Epithelial Cells Urine Bacteria Urine Opiates Screen Urine Methadone Screen Ur Barbiturates Screen Ur Phencyclidine Scrn Ur Amphetamines Screen U Benzodiazepines Scrn U Oth Cocaine Metabols U Cannabinoids Screen Assessment & Plan - Assessment and Plan (Free Text) Assessment: 27 year old male with pertinent history of PCP and heroin use under ICU management for Acute Hypoxic Respiratory Failure, now resolved Bilateral pulmonary infiltrates, likely 2/2 Aspiration PNA VS Heroin-Induced Pulmonary Edema Initial VBG showed 7.18/69/35. Pt was placed on BiPAP, which showed improvement in ABG. Patient is now able to protect airway, is satting well on 2L NC Plan - Continue with 2L NC PRN and Duoneb PRN, as well as Mucinex - Continue Azithromycin, Rocephin, Flagyl - Continue with folic acid and thiamine for withdrawal - Continue with GI/DVT PPX with Protonix and Lovenox Dispo: Patient is stable for transfer to Telemetry <Sebas Manzano - Last Filed: 11/03/17 12:12> Meds - Medications Medications: Current Medications Albuterol/Ipratropium (Duoneb 3 Mg/0.5 Mg (3 Ml) Ud) 3 ml IH Q2H PRN PRN Reason: Shortness of Breath Enoxaparin Sodium (Lovenox) 40 mg SC DAILY [facility] PRN Reason: Protocol Last Admin: 11/03/17 10:06 Dose: 40 mg Folic Acid (Folic Acid) 1 mg PO DAILY [facility] Last Admin: 11/03/17 10:05 Dose: 1 mg Furosemide (Lasix) 40 mg IVP DAILY [facility] Last Admin: 11/03/17 10:05 Dose: 40 mg Guaifenesin (Mucinex La) 600 mg PO BID [facility] Metronidazole (Flagyl) 500 mg in 100 mls @ 100 mls/hr IVPB Q8 [facility] PRN Reason: Protocol Last Admin: 11/03/17 10:07 Dose: 100 mls/hr Ceftriaxone Sodium (Rocephin 1 Gram Ivpb) 1 gm in 100 mls @ 100 mls/hr IVPB DAILY [facility] PRN Reason: Protocol Azithromycin (Zithromax 500mg In Ns) 500 mg in 250 mls @ 167 mls/hr IVPB DAILY [facility] PRN Reason: Protocol Sodium Chloride (Sodium Chloride 0.9%) 1,000 mls @ 60 mls/hr IV .[id number] [facility] Last Admin: 11/03/17 10:08 Dose: 60 mls/hr Pantoprazole Sodium (Protonix Inj) 40 mg IVP Q12 [facility] Last Admin: 11/03/17 10:05 Dose: 40 mg Thiamine HCl (Vitamin B1 Tab) 100 mg PO DAILY [facility] Last Admin: 11/03/17 10:04 Dose: 100 mg Results - Vital Signs Recent Vital Signs: Last Vital Signs Temp 98.6 F 11/03/17 04:32 Pulse 101 H 11/03/17 10:50 Resp 37 H 11/03/17 10:50 BP 131/61 11/03/17 10:05 Pulse Ox 93 L 11/03/17 10:50 - Labs Result Diagrams: 11/03/17 05:30 11/03/17 05:30 Labs: Laboratory Results - last 24 hr 11/03/17 11/03/17 11/03/17 02:20 04:15 04:15 WBC RBC Hgb Hct MCV MCH MCHC RDW Plt Count MPV Gran % Lymph % (Auto) [place] % (Auto) Eos % (Auto) Baso % (Auto) Gran # Lymph # (Auto) [place] # (Auto) Eos # (Auto) Baso # (Auto) pCO2 51 H pO2 94.0 HCO3 25.1 ABG pH 7.30 L ABG Total CO2 26.7 ABG O2 Saturation 98.4 H ABG Base Excess -2.0 ABG Potassium 3.7 VBG pH VBG pCO2 VBG HCO3 VBG Total CO2 VBG O2 Sat (Calc) VBG Base Excess VBG Potassium Sodium 136.0 Chloride 104.0 Glucose 156 H Lactate 1.1 FiO2 100.0 Potassium Carbon Dioxide Anion Gap BUN Creatinine Est GFR ( Amer) Est GFR (Non-Af Amer) Random Glucose Calcium Phosphorus Magnesium Total Bilirubin AST ALT Alkaline Phosphatase Total Protein Albumin Globulin Albumin/Globulin Ratio Arterial Blood Potassium 3.7 Venous Blood Potassium Urine Color Yellow Urine Appearance Sl cloudy Urine pH 6.[address] [place] >= 1.030 Urine Protein 30 H Urine Glucose (UA) 500 H Urine Ketones Negative Urine Blood Trace-intact H Urine Nitrate Negative Urine Bilirubin Negative Urine Urobilinogen 0.2 Ur Leukocyte Esterase Negative Urine RBC 0 - 2 Urine WBC 1 - 3 Ur Epithelial Cells 0 - 2 Urine Bacteria Occ Urine Opiates Screen Positive H Urine Methadone Screen Negative Ur Barbiturates Screen Negative Ur Phencyclidine Scrn Negative Ur Amphetamines Screen Negative U Benzodiazepines Scrn Negative U Oth Cocaine Metabols Negative U Cannabinoids Screen Negative 11/03/17 11/03/17 11/03/17 05:02 05:30 05:30 WBC 3.9 L D RBC 5.12 Hgb 14.5 Hct 44.8 MCV 87.5 MCH 28.3 MCHC 32.4 RDW 14.7 H Plt Count 169 MPV 10.5 Gran % 83.7 H Lymph % (Auto) 7.1 L [place] % (Auto) 9.2 H Eos % (Auto) 0.0 L Baso % (Auto) 0.0 Gran # 3.28 Lymph # (Auto) 0.3 L [place] # (Auto) 0.4 Eos # (Auto) 0.0 Baso # (Auto) 0.00 pCO2 44 pO2 321.0 H HCO3 22.2 ABG pH 7.31 L ABG Total CO2 23.6 ABG O2 Saturation 99.7 H ABG Base Excess -4.1 L ABG Potassium 3.8 VBG pH VBG pCO2 VBG HCO3 VBG Total CO2 VBG O2 Sat (Calc) VBG Base Excess VBG Potassium Sodium 137.0 139 Chloride 109.0 H 105 Glucose 133 H Lactate 0.9 FiO2 100.0 Potassium 4.2 Carbon Dioxide 23 Anion Gap 16 BUN 22 H Creatinine 1.0 Est GFR ( Amer) > 60 Est GFR (Non-Af Amer) > 60 Random Glucose 144 H Calcium 8.5 Phosphorus 3.1 Magnesium 1.8 Total Bilirubin 1.6 H AST 24 ALT 30 Alkaline Phosphatase 58 Total Protein 6.7 Albumin 3.7 Globulin 3.0 Albumin/Globulin Ratio 1.2 Arterial Blood Potassium 3.8 Venous Blood Potassium Urine Color Urine Appearance Urine pH Ur Specific [place] Urine Protein Urine Glucose (UA) Urine Ketones Urine Blood Urine Nitrate Urine Bilirubin Urine Urobilinogen Ur Leukocyte Esterase Urine RBC Urine WBC Ur Epithelial Cells Urine Bacteria Urine Opiates Screen Urine Methadone Screen Ur Barbiturates Screen Ur Phencyclidine Scrn Ur Amphetamines Screen U Benzodiazepines Scrn U Oth Cocaine Metabols U Cannabinoids Screen 11/03/17 05:30 WBC RBC Hgb Hct MCV MCH MCHC RDW Plt Count MPV Gran % Lymph % (Auto) [place] % (Auto) Eos % (Auto) Baso % (Auto) Gran # Lymph # (Auto) [place] # (Auto) Eos # (Auto) Baso # (Auto) pCO2 pO2 75 H HCO3 ABG pH ABG Total CO2 ABG O2 Saturation ABG Base Excess ABG Potassium VBG pH 7.30 L VBG pCO2 48.0 VBG HCO3 23.6 VBG Total CO2 25.1 VBG O2 Sat (Calc) 96.5 H VBG Base Excess -3.2 L VBG Potassium 4.2 Sodium 137.0 Chloride 106.0 Glucose 142 H Lactate 1.4 FiO2 21.0 Potassium Carbon Dioxide Anion Gap BUN Creatinine Est GFR ( Amer) Est GFR (Non-Af Amer) Random Glucose Calcium Phosphorus Magnesium Total Bilirubin AST ALT Alkaline Phosphatase Total Protein Albumin Globulin Albumin/Globulin Ratio Arterial Blood Potassium Venous Blood Potassium 4.2 Urine Color Urine Appearance Urine pH Ur Specific [place] Urine Protein Urine Glucose (UA) Urine Ketones Urine Blood Urine Nitrate Urine Bilirubin Urine Urobilinogen Ur Leukocyte Esterase Urine RBC Urine WBC Ur Epithelial Cells Urine Bacteria Urine Opiates Screen Urine Methadone Screen Ur Barbiturates Screen Ur Phencyclidine Scrn Ur Amphetamines Screen U Benzodiazepines Scrn U Oth Cocaine Metabols U Cannabinoids Screen Assessment & Plan - Assessment and Plan (Free Text) Assessment: Patient seen and examined on rounds with resident, agree with note with following additions/exceptions: Patient is 27yo male with PMHx of PCP and heroin abuse, presented to ER with heroin overdose, requiring BIPAP Currently OFF BIPAP, AAOX3, NAD, on 2LNC, sat 94%, speaking in full sentences, cannot recall the events of yesterday, admits to snorting heroin only Labs, imaging, Chart reviewed Patient with diffuse bilateral patchy multifocal infiltrates on CT chest, on Abx , ID following ABG with markedly improved oxygenation EKG normal QTc Heroin Overdose Multifocal PNA Recommend: - supp o2 as needed, duonebs PRN - Cover for CAP, and anaerobes - Follow up ID - check Procal - panculture, UCx, BCx - IVF hydration - ECHO - GI ppx - DVT ppx - transfer to telemetry
--- NOTE | 2017-11-03 17:09 | CON ---
Copied To: Swapnil Pickering MD Attending MD: Swapnil Pickering MD DATE: 11/03/2017 HISTORY OF PRESENT ILLNESS: The patient is seen earlier today in the ICU, bed #6. The patient's very good friend is at the bedside, who is the one who found him unresponsive at home. The friend states that he had seen the patient half hour before he found him and he was completely awake and oriented and his normal baseline until he came back half hour later and found him unresponsive. This is a 27-year-old male with past medical history significant for substance abuse and brought in to the emergency room with overdose diagnosis. The patient is awake and alert now. There are no fevers, no chills. He denies any headaches. He has mild shortness of breath, but no chest pain. No abdominal pain, diarrhea or constipation. No bright red blood per rectum. No melena. PAST MEDICAL HISTORY: Significant only for his substance abuse and alcohol abuse. PAST SURGICAL HISTORY: Noncontributory. ALLERGIES: THE PATIENT HAS NO KNOWN ALLERGIES. MEDICATIONS AT HOME: He takes no medications. SOCIAL HISTORY: He has no travel history. PHYSICAL EXAMINATION: GENERAL: The patient is in bed, acute, nontoxic, answering questions at this point. He is awake. VITAL SIGNS: Temperature of 98, heart rate of 92, respiratory rate of 25, O2 saturation of 91 and blood pressure of 120/70. HEENT: Examination of HEENT is unremarkable. NECK: Supple. LUNGS: Have decreased breath sounds. HEART: Normal S1, S2. ABDOMEN: Soft, nontender. No organomegaly. No rebound or guarding. No masses. LABORATORY DATA: Laboratory examination reveals a white count of 3.9, hemoglobin of 14, platelets of 169. BUN of 23, creatinine of 1.5, CK is 289. Urinalysis is noted. Toxicology reveals opiates are positive. Microbiology is pending. The patient had a chest x-ray, the results are pending. CAT scan of the head, the results are pending. EKG, the results are pending. History and physical examination is written by . Review of orders reveals the patient has an HIV test and procalcitonin, urine for Legionella antigen are ordered by a resident. The patient is on Flagyl, ceftriaxone, azithromycin. ASSESSMENT AND PLAN: A 27-year-old male with history of substance abuse. Admitted with systemic inflammatory response syndrome and overdose, rule out aspiration pneumonia, chemical pneumonitis. We will continue present course. Also with acute kidney injury. Pending panculture results, procalcitonin results. I doubt infectious etiology. We will most likely stop antibiotics within the next 24-48 hours assuming all cultures and workup is negative for infection. Swapnil Pickering MD
[2017-11-03] MEDS: guaiFENesin 600 mg ER Tab PO SCH (17:25)
[2017-11-03] MEDS: Azithromycin 500MG/NS 250ml 500 MG/250 ML BAG IVPB SCH (21:38)
[2017-11-03] MEDS: cefTRIAXone 1 gm 1 GM/100 ML BAG IVPB SCH (21:38)
[2017-11-04] MEDS: metroNIDAZOLE IV 500 mg/100 ml 500 MG/100 ML BAG IVPB SCH (05:24)
--- NOTE | 2017-11-04 05:42 | CARD ---
APPROVED REPORT Date of service: 11/03/2017 EXAM: Two-dimensional and M-mode echocardiogram with Doppler and color Doppler. INDICATION Dyspnea 2D DIMENSIONS IVSd0.8 (0.7-1.1cm)LVDd4.8 (3.9-5.9cm) PWd1.0 (0.7-1.1cm)LVDs3.3 (2.5-4.0cm) FS (%) 29.0 %LVEF (%)5.6 (>50%) M-Mode DIMENSIONS Left Atrium (MM)4.00 (2.5-4.0cm)Aortic Root2.90 (2.2-3.7cm) Aortic Cusp Exc.2.10 (1.5-2.0cm) Aortic Valve AoV Peak Cuqpuotn402.0cm/s Mitral Valve MV E Qyikpqlv404.0cm/sMV A Vrzkjwcu65.3cm/sE/A ratio1.4 TDI Lateral E' Peak V29.90cm/sMedial E' Peak V11.70cm/sE/Lateral E'3.4 E/Medial E'8.7 Tricuspid Valve TR Peak [id number]/sRAP [id number] Peak Gr.40mmHg [id number] LEFT VENTRICLE The left ventricle is normal size. There is normal left ventricular wall thickness. The left ventricular function is normal. The left ventricular ejection fraction is within the normal range. There is normal LV segmental wall motion. RIGHT VENTRICLE The right ventricle is normal size. The right ventricular systolic function is normal. ATRIA The left atrium size is normal. The right atrium size is normal. The interatrial septum is intact with no evidence for an atrial septal defect. AORTIC VALVE The aortic valve is normal in structure. No aortic regurgitation is present. There is no aortic valvular stenosis. MITRAL VALVE The mitral valve is normal in structure. There is no mitral valve regurgitation noted. TRICUSPID VALVE The tricuspid valve is normal in structure. There is mild tricuspid regurgitation. PULMONIC VALVE The pulmonary valve is normal in structure. GREAT VESSELS The aortic root is normal in size. The IVC is normal in size and collapses >50% with inspiration. PERICARDIAL EFFUSION There is no pleural effusion. There is no pericardial effusion. <Conclusion> Normal Echo study.
[2017-11-04 07:33] LABS: BASO # 0.01 K/mm3 (0.0-2.0); BASO % 0.1 % (0.0-3.0); EOS # 0.1 (0.0-0.7); EOS % 1.1 % (1.5-5.0); GRAN # 8.51 (1.4-6.5); GRAN % 74.6 % (50.0-68.0); LYMPH # 1.7 (1.2-3.4); LYMPH % 14.6 % (22.0-35.0); MEAN CELL VOLUME 87.3 fl (80.0-105.0); MEAN CORPUSCULAR HEMOGLOBIN 28.4 pg (25.0-35.0); MEAN CORPUSCULAR HGB CONC 32.6 g/dl (31.0-37.0); MEAN PLATELET VOLUME 10.2 fl (7.0-11.0); MONO # 1.1 (0.1-0.6); MONO % 9.6 % (1.0-6.0); RBC 4.4 10^6/uL (3.5-6.1); RED CELL DISTRIBUTION WIDTH 14.9 % (11.5-14.5); WHITE BLOOD COUNT 11.4 10^3/ul (4.5-11.0)
[2017-11-04 07:55] LABS: HEMOGLOBIN 12.5 g/dL (14.0-18.0)
[2017-11-04 08:12] LABS: ALB/GLOB RATIO 1.2 (1.1-1.8); ALBUMIN 3.6 g/dL (3.0-4.8); ALT/SGPT 18 U/L (7-56); AST/SGOT 21 U/L (17-59); BLOOD UREA NITROGEN 14 mg/dL (7-21); CALCIUM 8.8 mg/dL (8.4-10.5); GFR AFRICAN-AMERICAN > 60; GFR NON-AFRICAN AMERICAN > 60
[2017-11-04] MEDS: guaiFENesin 600 mg ER Tab PO SCH ×2 (09:31→17:38)
[2017-11-04] MEDS: Enoxaparin 40 mg Syringe SC SCH (09:32)
[2017-11-04] MEDS: cefTRIAXone 1 gm 1 GM/100 ML BAG IVPB SCH (09:32)
[2017-11-04] MEDS: Azithromycin 500MG/NS 250ml 500 MG/250 ML BAG IVPB SCH (09:33)
--- NOTE | 2017-11-04 14:38 | PN ---
Copied To: Swapnil Pickering MD Attending MD: Swapnil Pickering MD DATE: 11/04/2017 SUBJECTIVE: The patient is in bed in no acute distress, nontoxic. PHYSICAL EXAMINATION: VITAL SIGNS: Temperature is 97, blood pressure is 113/50, respiratory rate of 18. HEENT: Examination of HEENT is unremarkable. NECK: Supple. LUNGS: Have decreased breath sounds. HEART: Normal S1 and S2. ABDOMEN: Soft. LABORATORY EXAMINATION: Reveals a white count of 11,000, hemoglobin of 12, platelets of 158. Coagulation is noted and chemistries reveals a BUN of 14, creatinine of 1.1. Procalcitonin is elevated at 1.37. Urinalysis is noted and urine for Legionella antigen is negative. Microbiology is negative and the patient has CAT scan which revealed multifocal pneumonia. ASSESSMENT AND PLAN: This is a 27-year-old male who has history of polysubstance abuse and alcohol abuse who was admitted with sepsis and status post overdose, developed aspiration pneumonia, most likely an elevated procalcitonin with acute kidney injury and cultures negative. Elevated procalcitonin maybe able to switch to p.o. Levaquin. It is important to followup the patient's x-ray and have a repeat x-ray in the near future to show the resolution of his radiological findings. At this time, we will discontinue the IV Zithromax. Discontinue IV Flagyl. Discontinue the ceftriaxone. The patient's EKG shows a QTC of 430. We will complete with p.o. Levaquin and repeat imaging in 7-10 days to see if there is complete resolution of the radiological finding. Follow up as outpatient. Case discussed with PMD. This morning the patient is awake and oriented. He has his girlfriend with him awake and alert, oriented. The patient's HIV is negative. Urine for Legionella antigen is negative. Swapnil Pickering MD
--- NOTE | 2017-11-04 15:04 | CP.PCM.CON ---
History of Present Illness - History of Present Illness History of Present Illness: Neurology Consultation Note: Mr. Norman is a 27-year-old man who has been previously seen in the hospital for several PCP overdoses, substance abuse, and this type was brought in after heroin overdose. He was given Narcan in the field and subsequently admitted to ICU. Now he is on the floor and exhibits memory deficits and confusion. When I evaluated the patient, he was alert and conversant with relatively normal interaction. However, he did admit to having some minor memory deficits. Review of Systems - Review of Systems All systems: reviewed and no additional remarkable complaints except Past Patient History - Infectious Disease Hx of Infectious Diseases: None - Tetanus Immunizations Tetanus Immunization: Unknown - Past Social History Smoking Status: Light Smoker < 10 Cigarettes Daily - CARDIAC Hx Cardiac Disorders: No - PULMONARY Hx Respiratory Disorders: No - NEUROLOGICAL Hx Neurological Disorder: No - HEENT Hx HEENT Problems: No - RENAL Hx Chronic Kidney Disease: No - ENDOCRINE/METABOLIC Hx Endocrine Disorders: No - HEMATOLOGICAL/ONCOLOGICAL Hx Blood Disorders: No - INTEGUMENTARY Hx Dermatological Problems: No - MUSCULOSKELETAL/RHEUMATOLOGICAL Hx Musculoskeletal Disorders: No Hx Falls: No - GASTROINTESTINAL Hx Gastrointestinal Disorders: No - GENITOURINARY/GYNECOLOGICAL Hx Genitourinary Disorders: No - PSYCHIATRIC Hx Substance Use: Yes (pcp) - SURGICAL HISTORY Hx Surgeries: Yes Other/Comment: metal plate in left humerus - ANESTHESIA Hx Anesthesia: Yes Meds Allergies/Adverse Reactions: Allergies Allergy/AdvReac Type Severity Reaction Status Date / Time No Known Allergies Allergy Verified 11/03/17 00:23 - Medications Medications: Current Medications Acetaminophen (Tylenol 325mg Tab) 650 mg PO Q6H PRN PRN Reason: Fever >100.4 F Last Admin: 11/03/17 12:44 Dose: 650 mg Albuterol/Ipratropium (Duoneb 3 Mg/0.5 Mg (3 Ml) Ud) 3 ml IH Q2H PRN PRN Reason: Shortness of Breath Last Admin: 11/03/17 22:23 Dose: 3 ml Enoxaparin Sodium (Lovenox) 40 mg SC DAILY [facility] PRN Reason: Protocol Last Admin: 11/04/17 09:32 Dose: 40 mg Folic Acid (Folic Acid) 1 mg PO DAILY [facility] Last Admin: 11/04/17 09:31 Dose: 1 mg Furosemide (Lasix) 40 mg IVP DAILY [facility] Last Admin: 11/04/17 09:31 Dose: 40 mg Guaifenesin (Mucinex La) 600 mg PO BID [facility] Last Admin: 11/04/17 09:31 Dose: 600 mg Sodium Chloride (Sodium Chloride 0.9%) 1,000 mls @ 60 mls/hr IV .[id number] [facility] Last Admin: 11/03/17 22:09 Dose: Not Given Levofloxacin (Levaquin) 500 mg PO DAILY [facility] PRN Reason: Protocol Stop: 11/09/17 11:01 Pantoprazole Sodium (Protonix Inj) 40 mg IVP Q12 [facility] Last Admin: 11/04/17 09:31 Dose: 40 mg Thiamine HCl (Vitamin B1 Tab) 100 mg PO DAILY [facility] Last Admin: 11/04/17 09:31 Dose: 100 mg Physical Exam - Neurological Exam Neurological exam: Alert, CN II-XII Intact, Normal Gait, Oriented x3, Reflexes Normal Additional comments: Recalled 1/3 objects, was able to spell WORLD frontward and backward, able to complete subtraction task. - Psychiatric Exam Psychiatric exam: Anxious Results - Vital Signs Recent Vital Signs: Last Vital Signs Temp 98.6 F 11/04/17 12:00 Pulse 102 H 11/04/17 12:00 Resp 18 11/04/17 12:00 BP 98/51 L 11/04/17 12:00 Pulse Ox 98 11/04/17 06:00 - Labs Result Diagrams: 11/05/17 06:45 11/05/17 06:30 Labs: Laboratory Results - last 24 hr 11/04/17 11/04/17 06:45 06:45 WBC 11.4 H D RBC 4.40 Hgb 12.5 L D Hct 38.4 L MCV 87.3 MCH 28.4 MCHC 32.6 RDW 14.9 H Plt Count 158 MPV 10.2 Gran % 74.6 H Lymph % (Auto) 14.6 L [place] % (Auto) 9.6 H Eos % (Auto) 1.1 L Baso % (Auto) 0.1 Gran # 8.51 H Lymph # (Auto) 1.7 [place] # (Auto) 1.1 H Eos # (Auto) 0.1 Baso # (Auto) 0.01 Sodium 139 Potassium 4.2 Chloride 104 Carbon Dioxide 25 Anion Gap 14 BUN 14 Creatinine 1.1 Est GFR ( Amer) > 60 Est GFR (Non-Af Amer) > 60 Random Glucose 95 Calcium 8.8 Phosphorus 1.5 L Magnesium 1.9 Total Bilirubin 1.8 H AST 21 ALT 18 Alkaline Phosphatase 66 Total Protein 6.4 Albumin 3.6 Globulin 2.8 Albumin/Globulin Ratio 1.2 Assessment & Plan - Assessment and Plan (Free Text) Assessment: The patient may have suffered a slight anoxic injury, but appears to be recovering well. Plan: If he continues to have trouble with his memory, then an MRI of the brain can be done and the patient can be evaluated for cognitive therapy. This can be done as an outpatient. No further recommendations at this time. Thank you.
--- NOTE | 2017-11-04 15:06 | CP.PCM.PN ---
<Kathy Tamez - Last Filed: 11/04/17 15:22> Subjective - Date & Time of Evaluation Date of Evaluation: 11/04/17 Time of Evaluation: 15:03 - Subjective Subjective: Mr. Norman was examined at bedside today. He complained of persistence of his cough, and soreness in the chest upon breathing. His girlfriend reported that he was confused when he woke up this morning and asked how he got to the hospital. He denied any dizziness, abdominal pain, nausea, vomiting, or dysuria. Objective - Vital Signs/Intake and Output Vital Signs (last 24 hours): Temp Pulse Resp BP Pulse Ox 98.6 F 102 H 18 98/51 L 98 11/04/17 12:00 11/04/17 12:00 11/04/17 12:00 11/04/17 12:00 11/04/17 06:00 Intake and Output: 11/04/17 11/04/17 06:59 18:59 Intake Total 1210 300 Output Total 1000 600 Balance 210 -300 - Medications Medications: Current Medications Acetaminophen (Tylenol 325mg Tab) 650 mg PO Q6H PRN PRN Reason: Fever >100.4 F Last Admin: 11/03/17 12:44 Dose: 650 mg Albuterol/Ipratropium (Duoneb 3 Mg/0.5 Mg (3 Ml) Ud) 3 ml IH Q2H PRN PRN Reason: Shortness of Breath Last Admin: 11/03/17 22:23 Dose: 3 ml Enoxaparin Sodium (Lovenox) 40 mg SC DAILY [facility] PRN Reason: Protocol Last Admin: 11/04/17 09:32 Dose: 40 mg Folic Acid (Folic Acid) 1 mg PO DAILY [facility] Last Admin: 11/04/17 09:31 Dose: 1 mg Furosemide (Lasix) 40 mg IVP DAILY [facility] Last Admin: 11/04/17 09:31 Dose: 40 mg Guaifenesin (Mucinex La) 600 mg PO BID [facility] Last Admin: 11/04/17 09:31 Dose: 600 mg Sodium Chloride (Sodium Chloride 0.9%) 1,000 mls @ 60 mls/hr IV .[id number] [facility] Last Admin: 11/03/17 22:09 Dose: Not Given Levofloxacin (Levaquin) 500 mg PO DAILY [facility] PRN Reason: Protocol Stop: 11/09/17 11:01 Pantoprazole Sodium (Protonix Inj) 40 mg IVP Q12 [facility] Last Admin: 11/04/17 09:31 Dose: 40 mg Thiamine HCl (Vitamin B1 Tab) 100 mg PO DAILY [facility] Last Admin: 11/04/17 09:31 Dose: 100 mg - Labs Labs: 11/04/17 06:45 11/04/17 06:45 PT 11.3 SECONDS (9.4-12.5) 11/03/17 00:45 INR 0.99 11/03/17 00:45 APTT 22.6 Seconds (25.1-36.5) L 11/03/17 00:45 - Constitutional Appears: Well, Non-toxic - Head Exam Head Exam: ATRAUMATIC, NORMOCEPHALIC - Eye Exam Eye Exam: EOMI, PERRL - ENT Exam ENT Exam: Mucous Membranes Moist - Neck Exam Neck Exam: Full ROM - Respiratory Exam Respiratory Exam: Decreased Breath Sounds, Rhonchi - Cardiovascular Exam Cardiovascular Exam: REGULAR RHYTHM, +S1, +S2 - GI/Abdominal Exam GI & Abdominal Exam: Soft, Normal Bowel Sounds. absent: Distended, Firm, Tenderness - Extremities Exam Extremities Exam: Normal Inspection. absent: Pedal Edema, Tenderness - Back Exam Back Exam: NORMAL INSPECTION - Neurological Exam Neurological Exam: Alert, Awake, Oriented x3 - Psychiatric Exam Psychiatric exam: Normal Affect, Normal Mood - Skin Skin Exam: Normal Color Assessment and Plan - Assessment and Plan (Free Text) Assessment: 27 y/o M with pmhx of multiple ED visits for PCP overdose, admitted for hypoxic respiratory failure likely secondary to drug overdose. Plan: Hypoxic respiratory failure - Likely etiology: 2/2 aspiration vs drug induced pulmonary edema - CT Chest (11/03): extensive bilateral patchy infiltrates with consolidations - continue Duoneb 3mL IH q4hr. 3mL IH Q2 prn SOB - continue 2L NC PRN, as per pulm - Repeat VB.3/48/35/23 - continue to monitor O2Sat - advanced to regular diet Multifocal Pneumonia - Likely etiology: secondary to aspiration s/p overdose - CT Chest (11/03): extensive bilateral patchy infiltrates with consolidations - d/c Metronidazole, Ceftriaxone, Azithromycin, as per ID - start Levaquin 500mg PO daily, as per ID - continue Mucinex 600mg PO BID - afebrile today - WBC today 11.4 - procalcitonin 1.37 - continue furosemide 40mg IVP QD - f/u CXR - ECHO: no abnormalities - BCx: prelim neg x1 - ID Dr. Pickering consulted, recs appreciated - Neuro consulted for confusion, likely secondary to infectious process Substance use disorder - urine drug screen + opiates - continue thiamine and folic acid - cessation advised GI/DVT ppx: protonix/lovenox Case reviewed and discussed with Dr. Monsivais. <Pam Monsivais R - Last Filed: 11/04/17 16:15> Objective - Vital Signs/Intake and Output Vital Signs (last 24 hours): Temp Pulse Resp BP Pulse Ox 98.6 F 102 H 18 98/51 L 98 11/04/17 12:00 11/04/17 12:00 11/04/17 12:00 11/04/17 12:00 11/04/17 06:00 Intake and Output: 11/04/17 11/04/17 06:59 18:59 Intake Total 1210 300 Output Total 1000 600 Balance 210 -300 - Medications Medications: Current Medications Acetaminophen (Tylenol 325mg Tab) 650 mg PO Q6H PRN PRN Reason: Fever >100.4 F Last Admin: 11/03/17 12:44 Dose: 650 mg Albuterol/Ipratropium (Duoneb 3 Mg/0.5 Mg (3 Ml) Ud) 3 ml IH Q2H PRN PRN Reason: Shortness of Breath Last Admin: 11/03/17 22:23 Dose: 3 ml Enoxaparin Sodium (Lovenox) 40 mg SC DAILY [facility] PRN Reason: Protocol Last Admin: 11/04/17 09:32 Dose: 40 mg Folic Acid (Folic Acid) 1 mg PO DAILY [facility] Last Admin: 11/04/17 09:31 Dose: 1 mg Furosemide (Lasix) 40 mg IVP DAILY [facility] Last Admin: 11/04/17 09:31 Dose: 40 mg Guaifenesin (Mucinex La) 600 mg PO BID [facility] Last Admin: 11/04/17 09:31 Dose: 600 mg Sodium Chloride (Sodium Chloride 0.9%) 1,000 mls @ 60 mls/hr IV .[id number] [facility] Last Admin: 08/04/18 22:09 Dose: Not Given Levofloxacin (Levaquin) 500 mg PO DAILY [facility] PRN Reason: Protocol Stop: 11/09/17 11:01 Pantoprazole Sodium (Protonix Inj) 40 mg IVP Q12 [facility] Last Admin: 11/04/17 09:31 Dose: 40 mg Thiamine HCl (Vitamin B1 Tab) 100 mg PO DAILY [facility] Last Admin: 11/04/17 09:31 Dose: 100 mg - Labs Labs: 11/04/17 06:45 11/04/17 06:45 PT 11.3 SECONDS (9.4-12.5) 11/03/17 00:45 INR 0.99 11/03/17 00:45 APTT 22.6 Seconds (25.1-36.5) L 11/03/17 00:45 Attending/Attestation - Attestation I have personally seen and examined this patient.: Yes I have fully participated in the care of the patient.: Yes I have reviewed all pertinent clinical information, including history, physical exam and plan: Yes Notes (Text): Patient seen and examined by me at 10:35AM with resident. Case including HPI, physical exam, and assessment and plan discussed with resident. Agree with above with following additions/corrections. Patient is a 27-year-old male with past medical history significant for PCP overdose and substance abuse that was brought into the emergency room after being found by his friend not breathing. Per friend, he is induced vomiting in the patient at which time patient was breathing but unresponsive. Patient states he is feeling much better today. States he still having a little shortness of breath however this has improved since yesterday. Cough has also improved. Patient feels that he is forgetting things and has a memory deficit. He denies any chest pain or palpitations. No nausea, vomiting, or abdominal pain. No fevers or chills. No dysuria. Physical exam: Gen: Awake and alert sitting up in bed in no acute distress HEENT: Normocephalic atraumatic. Extraocular muscles intact, pupils equal reactive. Oropharynx is pink and moist, no pharyngeal erythema or exudate appreciated. Neck is supple. Cardiovascular: Irregularly irregular S1, S2. No murmurs, rubs, or gallops appreciated Pulmonary: Normal respiratory effort. Decreased breath sounds. Coarse breath sounds with coughing. No wheezing or rales appreciated. Gastrointestinal: Soft, nontender, nondistended, positive bowel sounds all 4 quadrants, no guarding. Musculoskeletal: Normal range of motion all extremities, no calf tenderness Central nervous system: AAO x 3. 5/5 muscle strength all extremities. CN 2-12 grossly intact Dermatologic: Skin warm and dry Assessment and plan: Patient is a 27-year-old male with past medical history significant for PCP overdose and substance abuse that was brought into the emergency room after being found by his friend not breathing. 1. Multifocal pneumonia. Likely aspiration pneumonia. Chest CT per radiologist showed extensive bilateral patchy infiltrates are seen as well as more dense consolidation in the posterior lower lobes, findings are consistent with multifocal pneumonia. Procalcitonin elevated. ID following, recommendations appreciated. Treated with Rocephin,Zithromax, and Flagyl. Switched to PO Levaquin today per ID. Continue Mucinex. 2D echo per [employer] showed normal 2d echo study. Blood cultures with no growth so far. 2. Acute Hypoxic Respiratory failure. Resolved. Continue with nebulizer treatments as needed and O2 via nasal cannula as needed. 3. Memory impairment. May be secondary to prolonged hypoxemia secondary to drug overdose. Neurology consulted, follow up recommendations. Head CT per radiologist showed no acute intracranial findings, sinusitis. 4. Drug overdose. UDS positive for opiates. Patient counseled at length at cessation. Case was discussed in detail with the patient regarding current diagnosis and treatment plan
[2017-11-04] MEDS: Sodium Chloride 0.9% 1,000 ML IV SCH (17:38)
[2017-11-04] MEDS: levoFLOXacin 500 MG TAB PO SCH (17:41)
[2017-11-05] MEDS ORDERED: Pantoprazole 40 mg EC Tab PO SCH (06:00)
[2017-11-05 07:01] VITALS: TEMP 98.5; O2SAT 97
[2017-11-05 07:32] LABS: BASO # 0.01 K/mm3 (0.0-2.0); BASO % 0.1 % (0.0-3.0); EOS # 0.5 (0.0-0.7); EOS % 4.8 % (1.5-5.0); GRAN # 6.53 (1.4-6.5); GRAN % 68.3 % (50.0-68.0); HEMOGLOBIN 12.8 g/dL (14.0-18.0); LYMPH # 1.8 (1.2-3.4); LYMPH % 18.8 % (22.0-35.0); MEAN CELL VOLUME 86.8 fl (80.0-105.0); MEAN CORPUSCULAR HEMOGLOBIN 28.3 pg (25.0-35.0); MEAN CORPUSCULAR HGB CONC 32.6 g/dl (31.0-37.0); MEAN PLATELET VOLUME 10.8 fl (7.0-11.0); MONO # 0.8 (0.1-0.6); RBC 4.53 10^6/uL (3.5-6.1); RED CELL DISTRIBUTION WIDTH 14.6 % (11.5-14.5); WHITE BLOOD COUNT 9.6 10^3/ul (4.5-11.0)
[2017-11-05 07:54] LABS: ALB/GLOB RATIO 1.2 (1.1-1.8); ALBUMIN 3.7 g/dL (3.0-4.8); ALT/SGPT 29 U/L (7-56); AST/SGOT 15 U/L (17-59); BLOOD UREA NITROGEN 13 mg/dL (7-21); CALCIUM 8.8 mg/dL (8.4-10.5); GFR AFRICAN-AMERICAN > 60; GFR NON-AFRICAN AMERICAN > 60
[2017-11-05] MEDS: levoFLOXacin 500 MG TAB PO SCH (11:02)
[2017-11-05] MEDS: guaiFENesin 600 mg ER Tab PO SCH (11:02)
[2017-11-05] MEDS: Enoxaparin 40 mg Syringe SC SCH ×2 (11:02→11:05)
[2017-11-05 11:53] VITALS: BP 127/82; RESP 20
--- NOTE | 2017-11-05 12:40 | CP.PCM.PN ---
Subjective - Date & Time of Evaluation Date of Evaluation: 11/05/17 Time of Evaluation: 12:36 - Subjective Subjective: Mr. Norman was seen and examined at the bedside. He is alert, oriented. He denies any headache, dizziness, able to move all extremities without any problem. He further claims of experiencing dizziness with change in position such as from lying to sitting. He is able to tolerate all po intake. There was no untoward events overnight. Objective - Vital Signs/Intake and Output Vital Signs (last 24 hours): Temp Pulse Resp BP Pulse Ox 98.5 F 91 H 20 127/82 97 11/05/17 11:53 11/05/17 11:53 11/05/17 11:53 11/05/17 11:53 11/05/17 06:00 Intake and Output: 11/05/17 11/05/17 06:59 18:59 Intake Total 420 Output Total 700 Balance -280 - Medications Medications: Current Medications Acetaminophen (Tylenol 325mg Tab) 650 mg PO Q6H PRN PRN Reason: Fever >100.4 F Last Admin: 11/03/17 12:44 Dose: 650 mg Albuterol/Ipratropium (Duoneb 3 Mg/0.5 Mg (3 Ml) Ud) 3 ml IH Q2H PRN PRN Reason: Shortness of Breath Last Admin: 11/03/17 22:23 Dose: 3 ml Enoxaparin Sodium (Lovenox) 40 mg SC DAILY [facility] PRN Reason: Protocol Last Admin: 11/05/17 11:05 Dose: Not Given Folic Acid (Folic Acid) 1 mg PO DAILY [facility] Last Admin: 11/05/17 11:02 Dose: 1 mg Guaifenesin (Mucinex La) 600 mg PO BID [facility] Last Admin: 11/05/17 11:02 Dose: 600 mg Sodium Chloride (Sodium Chloride 0.9%) 1,000 mls @ 60 mls/hr IV .[id number] [facility] Last Admin: 11/04/17 17:38 Dose: 60 mls/hr Levofloxacin (Levaquin) 750 mg PO DAILY [facility] PRN Reason: Protocol Pantoprazole Sodium (Protonix Ec Tab) 40 mg PO Q12H [facility] Last Admin: 11/05/17 06:38 Dose: Not Given Thiamine HCl (Vitamin B1 Tab) 100 mg PO DAILY [facility] Last Admin: 11/05/17 11:02 Dose: 100 mg - Labs Labs: 11/05/17 06:45 11/05/17 06:30 PT 11.3 SECONDS (9.4-12.5) 11/03/17 00:45 INR 0.99 11/03/17 00:45 APTT 22.6 Seconds (25.1-36.5) L 11/03/17 00:45 - Constitutional Appears: No Acute Distress - Head Exam Head Exam: NORMAL INSPECTION - Neurological Exam Neurological Exam: Alert, Awake Neuro motor strength exam: Left Upper Extremity: 5, Right Upper Extremity: 5, Left Lower Extremity: 5, Right Lower Extremity: 5 Additional comments: alert, oriented with some episode of forgetfulness. Assessment and Plan (1) Overdose Assessment & Plan: Case discussed with Dr. Dent, continue all current medical and physical therapy. Recommend psychiatry consult due to his drug overdose, MRI of the brain without contrast and can be done as an out patient, He also need cognitive therapy upon discharge. He will need to follow up with an outpatient neurologist after his MRI is done. If the patient would like to follow up with Dr. Dent at [address] [facility] [address] [place], [place] [id number] with tel. # [phone]. Status: Acute
--- NOTE | 2017-11-05 14:14 | CP.PCM.PN ---
Subjective - Date & Time of Evaluation Date of Evaluation: 11/05/17 Time of Evaluation: 10:40 - Subjective Subjective: Patient is feeling a little better, no fevers, not in distress, still with cough and phlegm, no diarrhea, no nausea. Objective - Vital Signs/Intake and Output Vital Signs (last 24 hours): Temp Pulse Resp BP Pulse Ox 98.5 F 91 H 20 127/82 97 11/05/17 11:53 11/05/17 11:53 11/05/17 11:53 11/05/17 11:53 11/05/17 06:00 Intake and Output: 11/05/17 11/05/17 06:59 18:59 Intake Total 420 Output Total 700 Balance -280 - Medications Medications: Current Medications Acetaminophen (Tylenol 325mg Tab) 650 mg PO Q6H PRN PRN Reason: Fever >100.4 F Last Admin: 11/03/17 12:44 Dose: 650 mg Albuterol/Ipratropium (Duoneb 3 Mg/0.5 Mg (3 Ml) Ud) 3 ml IH Q2H PRN PRN Reason: Shortness of Breath Last Admin: 11/03/17 22:23 Dose: 3 ml Enoxaparin Sodium (Lovenox) 40 mg SC DAILY [facility]N Reason: Protocol Last Admin: 11/05/17 11:05 Dose: Not Given Folic Acid (Folic Acid) 1 mg PO DAILY [facility] Last Admin: 11/05/17 11:02 Dose: 1 mg Guaifenesin (Mucinex La) 600 mg PO BID [facility] Last Admin: 11/05/17 11:02 Dose: 600 mg Sodium Chloride (Sodium Chloride 0.9%) 1,000 mls @ 60 mls/hr IV .[id number] [facility] Last Admin: 11/04/17 17:38 Dose: 60 mls/hr Levofloxacin (Levaquin) 750 mg PO DAILY [facility] PRN Reason: Protocol Pantoprazole Sodium (Protonix Ec Tab) 40 mg PO Q12H [facility] Last Admin: 11/05/17 06:38 Dose: Not Given Thiamine HCl (Vitamin B1 Tab) 100 mg PO DAILY [facility] Last Admin: 11/05/17 11:02 Dose: 100 mg - Labs Labs: 11/05/17 06:45 11/05/17 06:30 PT 11.3 SECONDS (9.4-12.5) 11/03/17 00:45 INR 0.99 11/03/17 00:45 APTT 22.6 Seconds (25.1-36.5) L 11/03/17 00:45 - Constitutional Appears: Non-toxic - Head Exam Head Exam: NORMAL INSPECTION - Neck Exam Neck Exam: absent: Meningismus - Respiratory Exam Respiratory Exam: Rales. absent: Rhonchi, Wheezes - Cardiovascular Exam Cardiovascular Exam: +S1, +S2 - GI/Abdominal Exam GI & Abdominal Exam: Soft. absent: Tenderness Assessment and Plan - Assessment and Plan (Free Text) Plan: Assessment Sepsis due to bilateral community-acquired pneumonia obesity with BMI 30 Plan Continue Levaquin day 3 to complete 7 days of therapy HIV test is non-reactive
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
[2017-11-05 15:35] VITALS: PULSE 88
[2017-11-06] MEDS ORDERED: levoFLOXacin 750 MG TAB PO SCH (10:00)
== END 2017-11-05 15:39 | disposition home or self-care (01) | DRG 582 ==
LOC: ED 00:20 → ERH 01:58 → CCU 04:06 → 2RSO 11:22
PROVIDERS: ADMIT Hospitalist; ATTEND Internal Medicine
DX: T40.1X1A Poisoning by heroin, accidental (unintentional), initial encounter (principal); A41.9 Sepsis, unspecified organism; N17.9 Acute kidney failure, unspecified; J96.01 Acute respiratory failure with hypoxia; J69.0 Pneumonitis due to inhalation of food and vomit; F11.10 Opioid abuse, uncomplicated; F16.10 Hallucinogen abuse, uncomplicated; E66.9 Obesity, unspecified; Z68.30 Body mass index [BMI] 30.0-30.9, adult; F17.210 Nicotine dependence, cigarettes, uncomplicated; R40.2412 Glasgow coma scale score 13-15, at arrival to emergency department